=== PATIENT | male | born 1985 | race Caucasian/White ===

== ENCOUNTER 2020-11-25 13:46 | Outpatient (CLI) | payer OTHER, SELFPAY | END 2020-11-25 13:47 | disposition home or self-care (01) | LOC: ANHCOVIDVC 13:47 | PROVIDERS: PCP Family Medicine | DX: Z23 Encounter for immunization (principal) | CPT/HCPCS: 0001A; 91300 ==

== ENCOUNTER 2020-12-16 13:44 | Outpatient (CLI) | payer OTHER, SELFPAY | END 2020-12-16 13:45 | disposition home or self-care (01) | LOC: ANHCOVIDVC 13:44 | PROVIDERS: PCP Family Medicine | DX: Z23 Encounter for immunization (principal) | CPT/HCPCS: 0002A; 91300 ==

== ENCOUNTER 2021-12-25 15:41 | Emergency (ER) | payer BC, SELFPAY ==
--- NOTE | 2021-12-25 15:46 | ED.URI ---
HPI - URI/Sore Throat General Chief Complaint: Upper Respiratory Infection Stated Complaint: cold symptoms Time Seen by Provider: 12/25/21 15:46 Source: patient Mode of arrival: ambulatory Limitations: no limitations History of Present Illness HPI Narrative: Mr. Hammond is a 36-year-old male patient presenting to the clinic today with complaints of cold symptoms for 2 days. He reports headache, sore throat, and body aches. No known fever or chills. Has had positive exposure to strep as his daughter had this last week. Reports his headache a 7 out of 10 currently. Has taken Motrin for his headache around 1:00 this afternoon without relief. MD elicited complaint: sore throat and nasal congestion Related Data Allergies Allergy/AdvReac Type Severity Reaction Status Date / Time No Known Allergies Allergy Unverified 06/21/16 13:48 Review of Systems Review of Systems: Pertinent positives per HPI. Patient denies any fever, chills, rash, visual changes, dizziness, cough, runny nose, sore throat, shortness of breath, chest pain, palpitations, nausea, vomiting, diarrhea, constipation, abdominal pain, or any urinary issues. [facility] Family History Family History Father Hypertension Mother Family history of diabetes mellitus in first degree relative Social History Social History Smoking status: Former smoker Alcohol intake: current Comments At the time of my signature, I reviewed and agree with the nursing past medical, surgical, social, and family history. There is no relevant family history pertinent to the patient complaint. Exam Narrative: General: Well-developed, well nourished, mildly ill-appearing Head: Normocephalic, atraumatic Eyes: Pupils equally round and reactive to light bilaterally, EOM intact, sclera and conjunctive clear, no discharge, lids normal Ears: TMs intact and clear, ear canals clear, no drainage, grossly hearing normal. Nose: Nares patent, clear discharge, mild inflammation, no sinus tenderness. Mouth: Oral pharynx without lesions or masses, good dentition, MMM. Oropharynx red, with bilateral tonsillar swelling and exudate Neck: Supple, trachea midline, mild enlargement of anterior cervical nodes, no thyroid masses or goiter palpable. Cardio: Regular rate and rhythm, s1 and s2 normal, no murmur appreciated. Resp: Clear to auscultation bilaterally, no rhonchi, rales, wheezing or rubs Course Course Emergency Course: Portions of this record may have been created with voice recognition software. Level of Care: Express Care Visit Vital Signs Vital signs: Vital signs reviewed MDM - URI/Sore Throat MDM Narrative Medical decision making narrative: At the time of assessment patient is laying down on the exam table. Mildly ill-appearing. Reporting body aches, sore throat, and headache. Influenza, strep, and Covid testing completed. Covid testing was negative however strep was positive and influenza B was positive. Reviewed up-to-date recommendations for treatment of coinfection of strep and influenza B however I was unable to find adequate information regarding treatment for coinfection. Contacted collaborating provider Dr. Pippa Ba to discuss patient's coinfection and treatment recommendations of Amoxil and Tamiflu. She stated that it is okay to put the patient on both medications for his treatment regimen. Supportive measures were discussed and a work note was given to the patient. He voiced understanding of discharge instructions. Differential Diagnosis Differential diagnosis: Likely upper respiratory infection, croup, sinusitis, viral infection, bronchitis, influenza, pharyngitis and other (Covid, flu, strep) Discharge Plan Discharge Clinical Impression: Acute streptococcal pharyngitis, Influenza B Patient Disposition: Home, Self-Care Condition: Stable Inst
[2021-12-25 16:03] VITALS: BP 131/80; PULSE 95; RESP 18; TEMP 36.9; O2SAT 95
== END 2021-12-25 16:25 | disposition home or self-care (01) ==
PROVIDERS: Emergency Provider Nurse Practitioner Family; PCP Family Medicine
DX: J02.0 Streptococcal pharyngitis (principal); J10.1 Influenza due to other identified influenza virus with other respiratory manifestations; Z20.822 Contact with and (suspected) exposure to COVID-19; Z87.891 Personal history of nicotine dependence
CPT/HCPCS: 87426; 87804; 87880; 99213; C9803; G0463

== ENCOUNTER 2022-08-06 13:16 | Emergency (ER) | payer BC, SELFPAY ==
[2022-08-06] VITALS (12 sets, daily range): BP systolic 131–163; BP diastolic 73–95; PULSE 63; RESP 16; TEMP 36.4; O2SAT 97–100
--- NOTE | 2022-08-06 13:36 | ED.ALLEREA ---
HPI - Allergic Reaction General Chief complaint: Allergic Reaction Stated complaint: allergic reaction Time Seen by Provider: 08/06/22 13:26 Source: patient Mode of arrival: ambulatory Limitations: no limitations History of Present Illness HPI narrative: 37-year-old male presents today with concerns for rash and a feeling of swelling to his lips that started around 1130. Patient denies any history of allergies. Denies any new lotions, soaps, detergents, medications. Patient denies ever having anything like this happen before. Patient did take 50 mg of Benadryl around noon without improvement and decided to come here. Patient denies any shortness of breath or difficulty breathing. Heart rate normal. Related Data Allergies Allergy/AdvReac Type Severity Reaction Status Date / Time No Known Allergies Allergy Unverified 07/13/22 15:11 Review of Systems Review of Systems: CONSTITUTIONAL: Denies fever, chills, or sweats. EYES: Denies visual changes, redness, or discharge. ENT: Feels lips are swollen. Denies rhinorrhea, congestion, sore throat, or otalgia. CARDIOVASCULAR: Denies chest pain, palpitations, or edema. RESPIRATORY: Denies cough or dyspnea. GENITOURINARY: Denies dysuria or hematuria. SKIN: Rash with itching. MUSCULOSKELETAL: Denies back pain, joint pain, or myalgia. NEUROLOGIC: Denies headache, numbness, dizziness, or weakness. PSYCHIATRIC: Denies anxiety or depression. PMFSH Past Medical History Medical History GERD (gastroesophageal reflux disease) Family History Family History Father Hypertension Mother Family history of diabetes mellitus in first degree relative Social History Social History Smoking status: Former smoker Alcohol intake: current Exam Narrative: GENERAL: Well-appearing, well-nourished, and in no acute distress. HEAD: Normocephalic, atraumatic. EYES: PERRLA and EOMI. ENT: Nares clear, no rhinorrhea or epistaxis. Mucous membranes moist. Oropharynx without tonsillar hypertrophy, exudate, edema, or other lesions. NECK: Supple. No adenopathy or masses. CHEST: Clear to auscultation. No respiratory distress. No wheezes rales or rhonchi HEART: Regular rate and rhythm. No murmur heard. Normal peripheral pulses. ABDOMEN: Soft, nontender, nondistended, normal active bowel sounds. EXTREMITIES: Normal range of motion. No edema. SKIN: Maculopapular rash noted to trunk. Warm, dry. Course Course Emergency Course: Patient with significant improvement after medication. Patient without any feelings that his lips are swollen. Pruritic reaction as listed. Will discharge home with medications plan follow-up with primary. Vital Signs Vital signs: Vital Signs Temperature 97.6 F 08/06/22 13:18 Pulse Rate 63 08/06/22 13:18 Respiratory Rate 16 08/06/22 13:18 Blood Pressure 131/87 08/06/22 13:18 Pulse Oximetry 99 08/06/22 13:18 Temperature 97.6 F 08/06/22 13:18 Pulse Rate 63 08/06/22 13:18 Respiratory Rate 16 08/06/22 13:18 Blood Pressure 149/95 H 08/06/22 13:31 Pulse Oximetry 98 08/06/22 15:15 MDM - Allergic Reaction MDM Narrative Medical decision making narrative: 37-year-old male HPI as noted. Patient has denied any new lotions, soaps, detergents, foods, medications. Unknown known reason for allergic reaction. Improvement noted after steroids and Pepcid. Will discharge home with prednisone, famotidine, Zyrtec, and an EpiPen. Patient to follow-up with primary care. Differential Diagnosis Differential diagnosis: Likely anaphylaxis, allergic reaction, angioedema and urticaria Medical Records Attestation: I reviewed the patient's medical records. Discharge Plan Discharge Clinical Impression: Allergic reaction Patient Disposition: Home, Self-Care Condition: Improved Inst
[2022-08-06] MEDS: methylPREDNISolone SOD SUCC 125 MG VIAL IV PUSH (13:44)
[2022-08-06] MEDS: ONDANSETRON INJ 4 MG/2 ML VIAL IV PUSH (13:44)
[2022-08-06] MEDS: SODIUM CHLORIDE 0.9% IV 1,000 ML 999 ML IV CONT (13:44)
[2022-08-06] MEDS: FAMOTIDINE 20 MG/2 ML VIAL IV PUSH (13:44)
== END 2022-08-06 15:51 | disposition home or self-care (01) ==
PROVIDERS: Emergency Provider Nurse Practitioner Family; PCP Family Medicine
DX: T78.40XA Allergy, unspecified, initial encounter (principal); K21.9 Gastro-esophageal reflux disease without esophagitis; Z87.891 Personal history of nicotine dependence
CPT/HCPCS: 96361; 96374; 96375; 99284; J2405; J2930; J7030

== ENCOUNTER 2023-09-04 10:08 | Emergency (ER) | payer OTHER, SELFPAY ==
[2023-09-04 11:09] VITALS: BP 136/91; PULSE 101; RESP 18; TEMP 36.9; O2SAT 98
--- NOTE | 2023-09-04 11:29 | ED.URI ---
HPI - URI/Sore Throat General Chief Complaint: Upper Respiratory Infection Stated Complaint: sorethroat,diarrhea Time Seen by Provider: 09/04/23 11:15 Source: patient Mode of arrival: ambulatory Limitations: no limitations History of Present Illness HPI Narrative: Krishna is a 38-year-old male patient presenting to the clinic today with complaints of sore throat, headache, fever, chills, body aches, diarrhea. He reports symptoms started on however diarrhea just started this morning. MD elicited complaint: sore throat and nasal congestion Related Data Allergies Allergy/AdvReac Type Severity Reaction Status Date / Time No Known Allergies Allergy Unverified 07/13/22 15:11 Review of Systems Review of Systems: Pertinent positives per HPI. Patient denies any rash, headache, visual changes, dizziness, cough, shortness of breath, chest pain, palpitations, nausea, vomiting, constipation, abdominal pain, or any urinary issues. PMFSH Past Medical History Medical History GERD (gastroesophageal reflux disease) Family History Family History Father Hypertension Mother Family history of diabetes mellitus in first degree relative Social History Social History Smoking status: Former smoker Alcohol intake: current Comments At the time of my signature, I reviewed and agree with the nursing past medical, surgical, social, and family history. There is no relevant family history pertinent to the patient complaint. Exam Narrative: General: Well-developed, well nourished, in no apparent distress Head: Normocephalic, atraumatic Eyes: Pupils equally round and reactive to light bilaterally, EOM intact, sclera and conjunctive clear, no discharge, lids normal Ears: TMs intact and clear, ear canals clear, no drainage, grossly hearing normal. Nose: Nares patent, clear nasal discharge, no inflammation, no sinus tenderness. Mouth: Oral pharynx red with bilateral tonsillar enlarged without lesions or masses, good dentition, MMM. Neck: Supple, trachea midline, enlargement of anterior cervical nodes, no thyroid masses or goiter palpable. Cardio: Regular rate and rhythm, s1 and s2 normal, no murmur appreciated. Resp: Clear to auscultation bilaterally, no rhonchi, rales, wheezing or rubs Course Course Emergency Course: Portions of this record may have been created with voice recognition software. Level of Care: Express Care Visit Vital Signs Vital signs: Vital Signs Temperature 36.9 C 09/04/23 11:09 Pulse Rate 101 H 09/04/23 11:09 Respiratory Rate 18 09/04/23 11:09 Blood Pressure 136/91 H 09/04/23 11:09 Pulse Oximetry 98 09/04/23 11:09 Oxygen Delivery Room Air 09/04/23 11:09 Temperature 36.9 C 09/04/23 11:09 Pulse Rate 101 H 09/04/23 11:09 Respiratory Rate 18 09/04/23 11:09 Blood Pressure 136/91 H 09/04/23 11:09 Pulse Oximetry 98 09/04/23 11:09 Oxygen Delivery Room Air 09/04/23 11:09 Vital signs reviewed MDM - URI/Sore Throat MDM Narrative Medical decision making narrative: At the time of visit patient is resting comfortably on the exam table. Patient appears to be nontoxic. Strep screen was positive in the clinic today. Will send in prescription for amoxicillin. Supportive measures were discussed with the patient and they voiced understanding discharge instructions and agrees to treatment plan. Return precautions reviewed Differential Diagnosis Differential diagnosis: Likely upper respiratory infection, otitis media, sinusitis, viral infection, bronchitis, influenza, pharyngitis and other (COVID) Discharge Plan Discharge Clinical Impression: Acute streptococcal pharyngitis Patient Disposition: Home, Self-Care Condition: Stable Instructions: Antibiotic Form, Strep Throat (ED) Additional I
== END 2023-09-04 11:55 | disposition home or self-care (01) ==
PROVIDERS: Emergency Provider Nurse Practitioner Family; PCP Family Medicine
DX: J02.0 Streptococcal pharyngitis (principal); Z87.891 Personal history of nicotine dependence; K21.9 Gastro-esophageal reflux disease without esophagitis; Z20.822 Contact with and (suspected) exposure to COVID-19
CPT/HCPCS: 87426; 87804; 87880; 99213; C9803; G0463